=== PATIENT | male | born 2000 | race Caucasian/White ===

== ENCOUNTER 2025-05-17 11:08 | Emergency (ER) | payer BC, SELFPAY ==
--- OUTSIDE RECORDS SUMMARY | 2025-05-17 11:22 | XMS_ITS | Clinical Summary ---
Author Organization [facility] Healthcare Address [address] [place] [address] Care Team Providers Care Strip Polisher Name Role Phone Unavailable Primary Care Provider Unavailabl e Social History Tobacco Use Types Packs/Day Years Used Date Smoking Tobacco: Never Assessed Sex and Gender Information Value Date Recorded Sex Assigned at Not on file Legal Sex Male 6:52 PM EDT Gender Identity Not on file Sexual Orientation Not on file Plan of Treatment Not on file
--- OUTSIDE RECORDS SUMMARY | 2025-05-17 11:22 | XMS_ITS | Clinical Summary ---
Author Organization [facility] Address [id number] [address] [place] [address] Care Team Providers Care Inspector Integrated Circ[employer] Name Role Phone Unavailable Primary Care Provider Unavailabl e Encounters Date Type Department Care Team Description 03/30/2025 Travel 03/28/2025 Travel from Last 3 Months Social History Tobacco Use Types Packs/Day Years Used Date Smoking Tobacco: Never Assessed Sex and Gender Information Value Date Recorded Sex Assigned at Not on file Legal Sex Male 4:36 PM EDT Gender Identity Not on file Sexual Orientation Not on file Plan of Treatment Health Maintenance Due Date Last Done Comments Depression Screening 2011 Tobacco Screening 2011 Adult BMI Screening 12/12/2017 DTaP,Tdap and Td Vaccines (7 - Td or Tdap) 05/27/2022 05/27/2012, 12/17/2004, 06/09/2001, Additional history exists COVID-19 Vaccine ( - 2023-2 5 season) 2024 02/12/2021, 01/22/2021 Influenza Vaccine 06/06/2025 Medical Devices Not on file Procedures Procedure Name Priority Date/Time Associated Diagnosis Comments JIMENEZ E ANTIGEN Routine 03/30/2025 4:00 PM EDT E ANTIGEN Routine 03/30/2025 4:00 PM EDT C ANTIGEN Routine 03/30/2025 4:00 PM EDT JIMENEZ C ANTIGEN Routine 03/30/2025 4:00 PM EDT from Last 3 Months Results * e Antigen (03/30/2025 4:00 PM EDT) Little e Antigen Positive 03/31/2025 2:28 AM EDT [facility] 03/30/2025 4:00 PM EDT 03/31/2025 2:20 AM EDT Lamont Gonzalez MD BLOOD BANK TEST ORDERABLES Fi nal Result [facility] [address] [place] [address], [place] * E Antigen (03/30/2025 4:00 PM EDT) E Antigen Negative 03/31/2025 2:27 AM EDT [facility] 03/30/2025 4:00 PM EDT 03/31/2025 2:20 AM EDT us Lamont Gonzalez MD BLOOD BANK TEST ORDERABLES Fi nal Result Performing Organization Address City/[facility]/ZIP Co de Phone Number [facility] [address] [facility] [place] [address], [place] * c Antigen (03/30/2025 4:00 PM EDT) Little c Antigen Positive 03/31/2025 2:27 AM EDT [facility] 03/30/2025 4:00 PM EDT 03/31/2025 2:20 AM EDT Lamont Gonzalez MD BLOOD BANK TEST ORDERABLES Fi nal Result [facility] [address] [facility] [place] [address], [place] * C Antigen (03/30/2025 4:00 PM EDT) C Antigen Positive 03/31/2025 2:27 AM EDT [facility] 03/30/2025 4:00 PM EDT 03/31/2025 2:20 AM EDT us Lamont Gonzalez MD BLOOD BANK TEST ORDERABLES nal Result [facility] [address] [place] [address], [place] from Last 3 Months Insurance ANTH
--- OUTSIDE RECORDS SUMMARY | 2025-05-17 11:22 | XMS_ITS | Clinical Summary ---
Author Organization [facility] Address [address] [place] [address] Phone Care Team Providers Care Clinical Lab Clerk Name Role Phone Juan Luis Harris DO Primary Care Provider [phone]- [phone] Social History Tobacco Use Types Packs/Day Years Used Date Smoking Tobacco: Never Assessed Sex and Gender Information Value Date Recorded Sex Assigned at Not on file Legal Sex Male 3:42 PM EST Gender Identity Not on file Sexual Orientation Not on file Last Filed Vital Signs Vital Sign Reading Time Taken Comments Blood Pressure 145/82 04/06/2021 5:41 PM EDT Pulse 78 04/06/2021 5:41 PM EDT Temperature 36.3 C (97.4 F) 04/06/2021 5:41 PM EDT Respiratory Rate 16 04/06/2021 5:41 PM EDT Oxygen Saturation 98% 04/06/2021 5:41 PM EDT Inhaled Oxygen Concentration - - Weight 134 kg (295 lb) 04/06/2021 5:41 PM EDT Height 182.9 cm (6') 04/06/2021 5:41 PM EDT Body Mass Index 40.01 04/06/2021 5:41 PM EDT Plan of Treatment Not on file Care Teams Clinical Lab Clerk Relationship Specialty Start Date End Date Juan Luis Harris DO [address] [place] [address] [address] [place] [address] PCP - General 04/06/21
[2025-05-17 11:33] VITALS: BP 130/73; PULSE 78; TEMP 36.6; O2SAT 98; BMI 48.8
--- NOTE | 2025-05-17 11:37 | XR_ITS ---
The [address] [address] Patient Name: HARJINDER DE LUNA MRN: [id number] date: 2000 Sex: M Assigned Patient Location: ER Current Patient Location: ED.MAIN Accession/Order Number: [id number] Exam Date: 05/17/2025 12:01 Report Date: 05/17/2025 12:03 At the request of: HILARIO PALMA MD Procedure: XR foot RT min 3V RIGHT FOOT - 3 views CLINICAL HISTORY: Atraumatic pain COMPARISON: None FINDINGS: No fractures or dislocation.. Mild soft tissue swelling. Cortical thickening seen second metatarsal could suggest Melorheostosis. XR/XR foot RT min 3V IMPRESSION: NO ACUTE PLAIN FILM FINDINGS. Impression dictated by: Kev Viveros M.D. 05/17/2025 12:03 PM Dictation Location: [place] [address] Electronically authenticated by: [id number] Y Date: 05/17/2025 12:03
--- NOTE | 2025-05-17 11:43 | ED_ITS ---
HPI HPI - General Adult General Chief complaint: Extremity Injury, Lower Stated complaint: LOWER EXTREMITY PAIN Time Seen by Provider: 05/17/25 11:36 Source: patient Mode of arrival: walk-in Limitations: no limitations History of Present Illness HPI narrative: 24-year-old male presented to the emergency department for pain in his right foot. It started last night and he does not recall any injury or unusual activity. He points to the dorsum of his foot distally, midline of the foot. It hurts to a lesser degree on the corresponding plantar aspect. He has never had a problem with this foot before and he does not have pain in the ankle. Related Data Previous Rx's ?Medication ?Instructions ?Recorded ibuprofen 800 mg tablet 800 mg PO Q8H PRN pain #20 t abs 05/17/25 Allergies Allergy/AdvReac Type Severity Reaction Status Date / Time No Known Drug Allergies Allergy Verified 05/17/25 11:33 Opioid HPI Opioid Management Most Recent Opioid Data: Last Pain Scale 6 Today, 11:40 Review of Systems ROS Narrative A ten point review of systems is negative except as noted above. PFSH PFSH Social History Little interest or pleasure in doing things: not at all Feeling down, depressed, or hopeless: not at all Exam Narrative Exam Narrative: Nurses note and vital signs reviewed and patient is not hypoxic. General: The patient appears well and in no apparent distress. Patient is resting comfortably on cart. Skin: Warm, dry, no pallor noted. There is no rash noted. Head: Normocephalic, atraumatic Eye: Normal conjunctiva, no drainage Ears, Nose, Mouth, and Throat: oral mucosa is moist. Nares patent. Cardiovascular: Regular Rate and Rhythm Respiratory: Patient is in no distress, no accessory muscle use, lungs are clear to auscultation, no wheezing, rales or rhonchi Back: non-tender, no CVA tenderness bilaterally to percussion. GI: Soft and nontender Musculoskeletal: The right foot is examined. There is some mild swelling to the dorsum of his foot distally. No break in the skin or bruise or rash. The ankle is nontender. Neurological: A&O, normal speech Psychiatric: Cooperative Constitutional Vital Signs, click to edit/add: Last Vital Signs Temp 98 F 05/17/25 11:33 Pulse 78 05/17/25 11:33 Resp 99 H 05/17/25 11:33 BP 130/73 05/17/25 11:33 Pulse Ox 98 05/17/25 11:33 O2 Del Method Room Air 05/17/25 11:33 Course Vital Signs Vital signs: Vital Signs Temperature 98 F 05/17/25 11:33 Pulse Rate 78 05/17/25 11:33 Respiratory Rate 99 H 05/17/25 11:33 Blood Pressure 130/73 05/17/25 11:33 Pulse Oximetry 98 05/17/25 11:33 Oxygen Delivery Method Room Air 05/17/25 11:33 Temperature 98 F 05/17/25 11:33 Pulse Rate 78 05/17/25 11:33 Respiratory Rate 99 H 05/17/25 11:33 Blood Pressure 130/73 05/17/25 11:33 Pulse Oximetry 98 05/17/25 11:33 Oxygen Delivery Method Room Air 05/17/25 11:33 Medical Decision Making MDM Narrative Medical decision making narrative: X-ray is negative. She was prescribed ibuprofen and was recommended rest ice and elevation and he was referred to podiatry. Treatment diagnosis and follow- up were discussed with the patient. Differential Diagnosis Differential Diagnosis: Foot strain, fracture Imaging Data X-ray right foot: Radiologist's impression: ITS Impressions Foot X-Ray 05/17/25 11:37 IMPRESSION: NO ACUTE PLAIN FILM FINDINGS. Impression dictated by: Kev Viveros M.D. 05/17/2025 12:03 PM Dictation Location: [place] [address] Electronically authenticated by: [id number] Y Date: 05/17/2025 12:03 Discharge Plan Discharge Chief Complaint: Extremity Injury, Lower Clinical Impression: Acute pain of right foot Patient Disposition: Home, Self-Care Time of Disposition Decision: 12:11 Condition: Good Mode of Transportation: Private Vehicle Prescriptions / Home Meds: New ibuprofen 800 mg tablet 800 mg PO Q8H PRN (Reason: pain) Qty: 20 0RF Print Language: [place] Instructions: Arthralgia (ED) Referrals: Physician,Non-Staff, MD [Primary Care Provider] - 1 week Nash Ritter DPM [Physician, Podiatry] - 1 week
== END 2025-05-17 12:18 | disposition home or self-care (01) ==
PROVIDERS: Emergency Provider Emergency Medicine
DX: M79.671 Pain in right foot (principal)
CPT/HCPCS: 73630; 99283